=== PATIENT | male | born 1995 | race Caucasian/White ===

== ENCOUNTER 2017-05-12 21:41 | Inpatient (IN) | payer OTHER ==
[~2017-05-12] VITALS: Ht 170.2 cm; Wt 65.3 kg
--- NOTE | ~2017-05-12 | PN ---
Unit #: [id number] #: [id number] Patient: EMIL BECKER [id number] [facility] [address] [place] [address] [id number] I MR#: [id number] NAME: EMIL BECKER. ROOM: P214 Age: 21 Sex: M Admission Date: 05/13/2017 : 1995 Attending Physician: Chago Carrasco M.D. Admitting Physician: Chago Carrasco M.D. Primary Care Physician: Primary Care Physician Alexandra PALM PROGRESS NOTES DATE 05/15/2017 DISCUSSION Mr. Becker is a 21-year-old white male who was seen today and chart was reviewed and case was discussed with the staff. He was anxious, withdrawn and rather seclusive to himself. Meanwhile, he has been cooperative with treatment recommendations and has been taking medications and tolerating them fairly well with no reported side effects. MENTAL STATUS EXAMINATION Young white male who was casually dressed with fair personal hygiene and appears to be in no acute distress or discomfort. He was awake and alert on interaction with intact orientation. His mood was anxious with congruent affect. He denies any suicidal or homicidal ideations. His insight and judgement remains slightly impaired. TREATMENT PLAN 1. Will continue on his current medications and treatment protocol. Will monitor his response and make further adjustments as needed. 2. Will continue to follow up. Dictated by... Nettie Bustos/jacquelyn TD: 05/17/2017 10:45 JOB #: [id number] [facility] PROGRESS NOTES Page 1 of 1 X Chago Carrasco MD PROGRESS NOTE
--- NOTE | ~2017-05-12 | A ---
[facility] Nutrition Therapy DATE: 05/14/17 Patient: EMIL BECKER Physician: AFAIRF Address: [address] [place] [address] Room/Bed: [address], Zip: [place] [address] Admit Date: 05/13/17 Date of : [birth year] Height: 5 7 Weight: [phone] NUTRITIONAL ASSESSMENT: REASON: UNINTENTIONAL WEIGHT LOSS PATIENT ADMITTED FOR HEROIN AND METH DETOX, SI PMH: ASTHMA Anthropometrics: HT: 67", WT: 144#, BMI: 22.6 Labs: 05/13/17- GLU: 123, ALL OTHER NUTRITION LABS WNL Meds: SEROQUEL, DESYREL, MVI, DETOX PROTOCOL Assessment: PATIENT IS A 21 Y/O MALE ADMITTED FOR HEROIN AND METH DETOX, AND SI. PATIENT IS CURRENTLY UNEMPLOYED, HOMELESS, SMOKES 1 PPD, HAS DAILY HEROIN, METH, AND XANAX USE, AND FREQUENT COCAINE USE. IT IS NOTED THAT PATIENT HAS A HX OF INPATIENT PSYCH HOSPITALIZATIONS. UPON ADMIT PATIENT STATED A POOR APPETITE WITH A 10# WEIGHT LOSS X WEEKS, AND HE HAS INSOMNIA (SLEEPS AVG 2 HOURS/NIGHT). WEIGHT HX PER [facility] SHOWS A WEIGHT OF 143# 2 YEARS AGO AND 148# 7 YEARS AGO. NURSING REPORTS GOOD PO INTAKES. CURRENT PSYCH MEDS MAY CAUSE WEIGHT AND APPETITE FLUCUTATIONS. THERE ARE NO SKIN OR GI ISSUES NOTED ATT. PATIENT IS ON A REGULAR DIET WITH NO CAFFEINE AND HE HAS AN ALLERGY TO ORANGE JUICE. Dx: NO NUTRITION DX Intervention: REGULAR DIET, MEDS PER MD, DETOX, PSYCH Monitoring, Evaluation and Goals: 1. ADEQUATE PO INTAKES >50% OF MEALS 2. PREVENT, CORRECT MICRO/MACRO NUTRIENT DEFICIENCIES MONITOR; WEIGHTS, LABS, PO/FLUID INTAKES Recommendations: 1. CONTINUE REGULAR DIET WITH NO CAFFEINE TOLERATED. OFFER SNACKS BETWEEN MEALS 2. ENCOURAGE ADEQUATE PO AND FLUID INTAKES RD TO F/U PER PROTOCOL AND PRN R/T PATIENT NOT CURRENTLY AT NUTRITIONAL RISK [facility] Nutrition Therapy DATE: 05/14/17 Patient: EMIL BECKER Physician: AFAIRF Address: [address] [place] [address] Room/Bed: [address], Zip: [place] [address] Admit Date: 05/13/17 Date of : [birth year] Height: 5 7 Weight: [phone] Respectfully, ASPEN PAIZ RD, LD [employer] [facility] cc: client file
--- NOTE | ~2017-05-12 | DS ---
Unit #: [id number] #: [id number] Patient: [facility]IL BECKER [id number] [facility] [place] [address] [id number] I MR#: [id number] NAME: EMIL BECKER. ROOM: P214 Age: 21 Sex: M Admission Date: 05/13/2017 : 1995 Discharge Date: 05/17/2017 Attending Physician: Chago Carrasco M.D. Primary Care Physician: Primary Care Physician No DISCHARGE SUMMARY IDENTIFYING DATA Mr. Becker is a 21-year-old single white male, who is a resident of [place], [place], and was self-referred to the hospital on a voluntary basis. DISCHARGE DIAGNOSES Psychiatric: Opioid dependence, moderate in acute withdrawals; cocaine dependence, moderate; methamphetamine dependence, moderate; opioid-induced mood disorder. Medical: None. Stressors: Mild psychosocial stressors. HISTORY OF PRESENT ILLNESS Mr. Becker is a 21-year-old white male with history of substance abuse and mood disorder, who was self-referred to the hospital stating that he has been mixing heroin and methamphetamine together and that he will be up for several days without sleeping and feels paranoid and then he feels his family just trying to kill him that he has not been eating as he should and feels dehydrated. He reports that he is using 3 to 4 points daily and that he is using 2 to 3 g of methamphetamine daily and that he injects heroin and occasionally he snorts and reports that he smokes methamphetamine. He also reports increasing depression, anxiety, paranoid, feelings of hopelessness and suicidal ideation. He was seen to be restless, agitated, irritable, and danger to self and as such, recommendation for inpatient level of care for safety and stabilization was made and the patient was stepped up to the inpatient unit. PAST PSYCHIATRIC HISTORY The patient has not had any prior inpatient or outpatient psychiatric treatment. Review of the medical records indicate that currently he is not active in any treatment program, is not seeing a psychiatrist, and is not taking any psychotropic medications. PAST MEDICAL HISTORY Asthma. HOSPITAL COURSE The patient was admitted to the adult chemical dependency and psychiatric unit at [facility] rhonda Alexander and was oriented to the hospital environment. Routine p.r.n. medications were initiated, and he was started back on his home medications and detox protocol was initiated, and he was closely monitored. He was taking the medications regularly was tolerating them fairly well and was able to show a decent therapeutic response with improvement in depression and anxiety, and was denying any suicidal ideations, intent, or plan and as such, it was decided that he will be Unit #: [id number] #: [id number] Patient: EMIL BECKER discharged home and will recommend ongoing outpatient psychiatric treatment. DISCHARGE MEDICATIONS None. DISCHARGE CONDITION Stable. PROGNOSIS Fair. Dictated by... Nettie Bustos/em TD: 05/17/2017 07:06 JOB #: [id number] DISCHARGE SUMMARY Page 1 of 1 X Chago Carrasco MD X DISCHARGE SUMMARY
--- NOTE | ~2017-05-12 | PN ---
Unit #: [id number] #: [id number] Patient: EMIL BECKER [id number] [facility] [address] [place] [address] [id number] I MR#: [id number] NAME: EMIL BECKER. ROOM: P214 Age: 21 Sex: M Admission Date: 05/13/2017 : 1995 Attending Physician: Chago Carrasco M.D. Admitting Physician: Chago Carrasco M.D. Primary Care Physician: Primary Care Physician Alexandra HUMMEL NOTES DATE OF SERVICE: 05/16/2017 SUBJECTIVE Mr. Becker is a 21-year-old white male, who was seen today and chart was reviewed, and case was discussed with the staff. He has been anxious, withdrawn, and rather seclusive to himself. Meanwhile, he has been cooperative with treatment recommendation and has been taking medications and tolerating them fairly well with no reported side effects. MENTAL STATUS EXAMINATION Young white male who was casually dressed with fair personal hygiene, appears to be in no distress or discomfort. He was awake and alert on interaction with intact orientation. His mood was anxious with a congruent affect. He denies any suicidal or homicidal ideation. His insight and judgment remain slightly impaired. TREATMENT PLAN 1. We will continue on his current medications and treatment protocol. We will monitor his response to medications and make further adjustments as needed. 2. We will continue to follow up. Dictated by... Nettie Bustos/em TD: 05/18/2017 00:25 JOB #: [id number] [facility] PROGRESS NOTES Page 1 of 1 X Chago Carrasco MD PROGRESS NOTE
--- NOTE | ~2017-05-12 | PN ---
Unit #: [id number] #: [id number] Patient: EMIL BECKER [id number] [facility] [address] [place] [address] [id number] MR#: [id number] NAME: EMIL BECKER. ROOM: P204 Age: 21 Sex: M Admission Date: 05/13/2017 : 1995 Attending Physician: Chago Carrasco M.D. Admitting Physician: Chago Carrasco M.D. Primary Care Physician: Primary Care Physician Alexandra PALM PROGRESS NOTES DATE OF SERVICE 05/14/2017 DISCUSSION Mr. Becker is a 21-year-old white male who was seen today. Chart was reviewed and case was discussed with staff. He has been anxious, withdrawn, and rather seclusive to himself. Meanwhile, he has been cooperative with treatment recommendations and has been taking the medications and tolerating them fairly well with no reported side effects. MENTAL STATUS EXAMINATION Young white male who is casually dressed with fair personal hygiene, appears to be in no acute distress or discomfort. He was awake and alert on interaction with intact orientation. His mood is anxious with congruent affect. Speech is slow and goal-directed. He denies any suicidal or homicidal ideations, and also denies any auditory or visual hallucinations. His insight and judgment remain slightly impaired. TREATMENT PLAN 1. We will continue him on his current medications and treatment protocol. We will monitor his response to medications and make further adjustments as needed. 2. We will continue to follow up. Dictated by... Nettie Bustos/jeannieg TD: 05/14/2017 09:47 JOB #: [id number] Unit #: [id number] #: [id number] Patient: EMIL BECKER PROGRESS NOTES Page 1 of 1 X Chago Carrasco MD PROGRESS NOTE
--- NOTE | ~2017-05-12 | HP ---
Unit #: [id number] #: [id number] Patient: EMIL BECKER [id number] [facility] [address] [place] [address] [id number] I MR#: [id number] NAME: EMIL BECKER. ROOM: [facility] Age: 21 Sex: M Admission Date: 05/13/2017 : 1995 Attending Physician: Chago Carrasco M.D. Admitting Physician: Chago Carrasco M.D. Primary Care Physician: Primary Care Physician No HISTORY AND PHYSICAL HISTORY OF PRESENT ILLNESS The patient is a 21-year-old man who has been admitted to [facility] for polysubstance abuse, homicidal or suicidal ideations. PAST MEDICAL HISTORY 1. Asthma. 2. Third-degree mack with skin graft as a child. PAST SURGICAL HISTORY As above. ALLERGIES Abernathy juice, morphine, and hydromorphone. HOME MEDICATIONS None. FAMILY MEDICAL HISTORY Medically noncontributory. SOCIAL HISTORY Polysubstance abuse. REVIEW OF SYSTEMS CONSTITUTIONAL: Denies fever or chills. HEENT: Denies sore throat, ear pain, or runny nose. CARDIOVASCULAR: Denies chest pain, irregular heart rhythm, or palpitations. CHEST: Denies shortness of breath or cough. No hemoptysis. GI: Denies nausea, vomiting. Denies diarrhea or chronic constipation. ENDOCRINE: Denies increased thirst or urination. Denies recent significant weight loss or weight gain. : Denies dysuria, frequency, or hematuria. SKIN: Denies any rashes. HEMATOLOGIC: Denies increased bleeding or bruising. MUSCULOSKELETAL: Denies hot, swollen joints. No generalized muscle pain. NEUROLOGIC: Denies problems with speech or vision, numbness, or tingling. Denies loss of bowel or bladder control. PHYSICAL EXAMINATION GENERAL: The patient is awake, in no acute distress. VITAL SIGNS: Temperature 97.5, heart rate 87, respirations 17, blood pressure 123/84. She is 5 feet 7; weight 144 pounds. Unit #: [id number] #: [id number] Patient: EMIL BECKER HEENT: Head is atraumatic, normocephalic. Pupils are equal, round, and reactive. Extraocular movements are intact. No drainage from ears or nose. NECK: Supple. Trachea is midline. HEART: Regular rate and rhythm. LUNGS: Clear. ABDOMEN: Soft, nontender, and nondistended. : Not done. SKIN: Warm, dry with no rashes or lesions. EXTREMITIES: No clubbing, edema, or cyanosis. NEUROLOGIC: Within normal limits. Cranial nerves II through XII intact. No focal deficits. Sensory or motor function: Grossly normal. Moves all extremities well. Coordination: Gait normal. Deep tendon reflexes intact. IMPRESSION 1. Psychiatric admission. 2. Detox. RECOMMENDATIONS PSYCHIATRIC: Per psychiatrist. MEDICAL: I see no contraindication to participate in this facility activities. MEDICAL PROGNOSIS Fair. MEDICAL CONDITION Stable. Dictated by... Basia Stubbs TD: 05/13/2017 09:12 JOB #: [id number] HISTORY AND PHYSICAL Page 1 of 1 X Mayda Freeman APRN X HISTORY AND PHYSICAL
--- NOTE | ~2017-05-12 | PA ---
Unit #: [id number] #: [id number] Patient: EMIL GUIDRY [id number] [facility] [address] [place] [address] [id number] MR#: [id number] NAME: EMIL GUIDRY. ROOM: P204 Age: Sex: M Admission Date: 05/13/2017 : 1995 Date of Assessment: 05/13/2017 Attending Physician: Chago Carrasco M.D. Admitting Physician: Chago Carrasco M.D. Primary Care Physician: Primary Care Physician No PSYCHIATRIC ASSESSMENT DATE OF SERVICE 05/13/2017. IDENTIFYING DATA Mr. Guidry is a 21-year-old single white male, who is a resident of [place], [place], and was self-referred to the hospital on a voluntary basis. CHIEF COMPLAINT "I've been mixing heroin and meth together." HISTORY OF PRESENT ILLNESS Mr. Guidry is a 21-year-old white male with history of substance abuse and mood disorder, who was self-referred to the hospital stating that he has been mixing heroin and methamphetamine together and that he will be up for several days without sleeping and feels paranoid and then he feels his family just trying to kill him that he has not been eating as he should and feels dehydrated. He reports that he is using 3 to 4 points daily and that he is using 2 to 3 g of methamphetamine daily and that he injects heroin and occasionally he snorts and reports that he smokes methamphetamine. He also reports increasing depression, anxiety, paranoid, feelings of hopelessness and suicidal ideation. He was seen to be restless, agitated, irritable, and danger to self and as such, recommendation for inpatient level of care for safety and stabilization was made and the patient was stepped up to the inpatient unit. SUBSTANCE ABUSE HISTORY The patient reports history of cannabis, cocaine, acid, opioids and amphetamine and benzodiazepine abuse and dependence, though it appears that currently he has been using cocaine, methamphetamine, and opioids on regular basis. PAST PSYCHIATRIC HISTORY The patient has not had any prior inpatient or outpatient psychiatric treatment. Review of the medical records indicate that currently he is not active in any treatment program, is not seeing a psychiatrist, and is not taking any psychotropic medications. PAST MEDICAL HISTORY Asthma. ALLERGIES Morphine and hydromorphone. Unit #: [id number] #: [id number] Patient: EMIL GUIDYR PERSONAL AND SOCIAL HISTORY A 21-year-old white male, who reports that he is single, unemployed, and essentially homeless and has poor social support system. MENTAL STATUS EXAMINATION Young white male, who was casually dressed with fair personal hygiene, appears to be in no acute distress or discomfort. He was awake and alert on interaction with intact orientation. His mood was anxious and depressed with a congruent affect. His speech was slow and restricted in content. His thought processes were disorganized with some looseness of associations and flight of ideas and paranoid ideations and delusional behavior. His insight and judgment remain significantly impaired. DIAGNOSTIC IMPRESSION Psychiatric: Opioid dependence, moderate in acute withdrawals; cocaine dependence, moderate; methamphetamine dependence, moderate; opioid-induced mood disorder. Medical: None. Stressors: Moderate psychosocial stressors. TREATMENT PLAN 1. The patient has presented with history of substance abuse and mood disorder and psychosis and has been decompensating and will need inpatient hospitalization for safety and stabilization. We will start him back on his home medications and we will also start him on detox protocol. 2. Supportive therapy was provided to the patient. ESTIMATED LENGTH OF STAY 4 to 5 days. ABILITY TO HELP SELF Limited. WILLINGNESS TO HELP SELF The patient appears to be willing to help self. STRENGTHS 1. Communicative. 2. Cooperative. PROBLEMS 1. Chronic dysphoric symptoms. 2. Chronic chemical dependency. 3. Poor social support system. DISCHARGE CRITERIA This will be contingent upon the patient's ability to show resolution of his depression and psychosis and his ability to stay safe and sober, particularly after discharge from the hospital. Dictated by... Nettie Bustos/em TD: 05/13/2017 07:40 Unit #: [id number] #: [id number] Patient: EMIL GUIDRY JOB #: [id number] PSYCHIATRIC ASSESSMENT Page 1 of 1 X Chago Carrasco MD X PSYCHIATRIC ASSESSMENT
[2017-05-13 09:48] LABS: BASOPHIL# 0.1 X10e3 (0-0.3); BASOPHIL% 0.8 % (0-2.5); EOSINOPHIL# 0.5 X10e3 (0-0.7); EOSINOPHIL% 7.1 % (0.0-7.0); HEMATOCRIT 37.6 % (38.0-50.0); HEMOGLOBIN 12.8 gm/dL (13.0-16.0); LYMPHOCYTE# 1.5 X10e3 (1.0-3.5); LYMPHOCYTE% 20.1 % (17.0-45.0); MEAN CELL VOLUME 87.6 FL (83-96); MEAN CORPUSCULAR HEMOGLOBIN 29.8 PG (28-34); MEAN PLATELET VOLUME 9.5 FL (6.5-11.5); MONOCYTE# 0.6 X10e3 (0-1.0); MONOCYTE% 8.2 % (3.0-12.0); NEUTROPHIL# 4.7 X10e3 (1.5-7.1); NEUTROPHIL% 63.8 % (40-75); PLATELET COUNT 270 X10e3 (140-420); RED CELL DISTRIBUTION WIDTH 13.9 % (11.0-15.5); WHITE BLOOD COUNT 7.3 X10e3 (4.0-10.5)
[2017-05-13 09:53] LABS: DIFF IND NO
[2017-05-13 09:57] LABS: ALBUMIN SERUM 3.9 g/dL (3.5-5.0); BILIRUBIN,TOTAL 0.6 mg/dL (0.2-2.0); GLOM FILT RATE Estimated 105.6 mL/min (>60); POTASSIUM 3.7 mmol/L (3.5-5.1); PROTEIN TOTAL SERUM 6.5 g/dL (6.0-8.3)
[2017-05-14 09:55] LABS: URINE APPEARANCE TURBID; URINE BILIRUBIN NEG (NEG); URINE BLOOD NEG (NEG); URINE COLOR DK YELLOW; URINE GLUCOSE NEG (NEG); URINE KETONE NEG (NEG); URINE LEUKOCYTE ESTERASE 1+ (NEG); URINE NITRATE NEG (NEG); URINE PH 6.5 (5-8); URINE PROTEIN NEG (NEG); URINE SPECIFIC GRAVITY 1.024 (1.003-1.035)
[2017-05-14 09:57] LABS: URINE BACTERIA AUWI NEG (NEGATIVE); URINE SQUAMOUS EPITHELIAL CELL FEW /[HPF]
[2017-05-14 10:56] LABS: AMPHETAMINE POS (NEG); BARBITURATES NEG (NEG); BENZODIAZEPINES NEG (NEG); COCAINE NEG (NEG); MARIJUANA POS (NEG); OPIATES POS (NEG); TRICYCLIC ANTIDEPRESSANTS NEG (NEG); U METHADONE NEG (NEG)
== END 2017-05-17 14:19 | disposition home or self-care (01) | DRG 897 ==
LOC: P2S 05-13 00:07
PROVIDERS: Psychiatry & Neurology Psychiatry
PROC: HZ2ZZZZ Detoxification Services for Substance Abuse Treatment (ICD-10-PCS; principal; 2017-05-13)
DX: F11.23 Opioid dependence with withdrawal (principal); F14.20 Cocaine dependence, uncomplicated; F15.20 Other stimulant dependence, uncomplicated; F11.24 Opioid dependence with opioid-induced mood disorder; Z59.0 Homelessness
CPT/HCPCS: 80053; 80307; 81003; 85025; 86592